=== PATIENT | female | born 1965 | race Caucasian/White ===

== ENCOUNTER 2021-01-28 11:59 | Emergency (ER) | payer MEDICAID ==
[~2021-01-28] VITALS: Ht 160 cm; Wt 58.0 kg
[2021-01-28 13:00] LABS: BASOPHILS % 0.8 % (0.0-2.0); EOSINOPHILS % 2.9 % (0.0-5.0); HEMATOCRIT. 39.4 % (36.0-48.0); LYMPHOCYTES % 21.1 % (20.0-50.0); MEAN CORPUSCULAR HEMOGLOBIN 26.7 pg (28.0-32.0); MEAN PLATELET VOLUME 9.1 fl (7.4-10.4); MONOCYTES % 8.5 % (2.0-8.0); NEUTROPHILS % 66.7 % (40.0-76.0); PLATELET 306 x1000/uL (130-400); RED BLOOD CELL COUNT 4.86 mill/uL (4.2-5.4); RED CELL DISTRIBUTION WIDTH 15.7 % (11.6-14.6)
[2021-01-28 13:06] LABS: CHLORIDE 104 mEq/L (98-107)
[2021-01-28] MEDS ORDERED: LORAZEPAM 2MG/ML CPJ IV ONE (20:45)
[2021-01-28 21:06] VITALS: BP 107/70
== END 2021-01-28 21:41 ==
LOC: ER 12:34
DX: R07.89 Other chest pain (principal); R45.851 Suicidal ideations; Z85.6 Personal history of leukemia; E11.9 Type 2 diabetes mellitus without complications; I10 Essential (primary) hypertension; Z93.0 Tracheostomy status; Z88.2 Allergy status to sulfonamides
CPT/HCPCS: 36415; 71045; 80053; 83880; 84484; 85025; 93005; 96374; 99285; J2060